=== PATIENT | female | born 1930 | race Caucasian/White ===

== ENCOUNTER 2016-10-18 18:44 | Inpatient (IN) | payer MEDICARE, OTHER ==
[~2016-10-18] VITALS: Ht 162.6 cm; Wt 72.6 kg
[2016-10-18] MEDS ORDERED: Pantoprazole Inj ONE (19:17)
[2016-10-18] MEDS ORDERED: Levophed 4mg/4mL Inj IV ONE (19:22)
[2016-10-18] MEDS ORDERED: Vancomycin 1.5gm/D5W 300ml 325 ML IVPB ONE (19:30)
[2016-10-18] MEDS ORDERED: Cefepime HCl 1 GM in NS 55 ML IV SCH (19:30)
[2016-10-18] MEDS ORDERED: Cefepime 1gm vial ONE (19:30)
[2016-10-18] MEDS ORDERED: metroNIDAZOLE 500mg 100 ML IV SCH (19:30)
[2016-10-18 19:34] LABS: BASOPHILS % (AUTO) 1.1 % (0.0-2.0); EOSINOPHILS % (AUTO) 0.3 % (0.0-3.0); LYMPHOCYTES % (AUTO) 46.9 % (20.0-45.0); MEAN CORPUSCULAR HEMOGLOBIN 26.2 PG (27.0-31.0); MEAN CORPUSCULAR HGB CONC 29.9 G/DL (32.0-36.0); MEAN CORPUSCULAR VOLUME 88 FL (80-99); MONOCYTES % (AUTO) 3.5 % (1.0-10.0); NEUTROPHILS % (AUTO) 48.3 % (45.0-75.0); PLATELET COUNT 291 K/UL (150-450); RED BLOOD COUNT 4.07 M/UL (4.20-5.40); RED CELL DISTRIBUTION WIDTH 15.3 % (11.6-14.8); WHITE BLOOD COUNT 9.6 K/UL (4.8-10.8)
[2016-10-18 19:45] LABS: TROPONIN I < 0.30 ng/mL (<=0.30)
[2016-10-18 19:46] LABS: PROTHROMBIN TIME 63.6 SEC (9.30-11.50)
[2016-10-18 19:49] LABS: ALANINE AMINOTRANSFERASE 222 U/L (3-33); ANION GAP 37 (5-15); ASPARTATE AMINO TRANSFERASE 248 U/L (5-40); CALCIUM 7.8 mg/dL (8.6-10.2); CARBON DIOXIDE 11 mEQ/L (20-30); CHLORIDE 95 mEQ/L (98-107); CREATININE 4.4 mg/dL (0.5-0.9); HEMOLYSIS 26; INR 5.9 (0.9-1.1); LIPASE 35 U/L (< 60); POTASSIUM 5.5 mEQ/L (3.4-4.9); SODIUM 143 mEQ/L (135-145); TOTAL PROTEIN 4.8 g/dL (6.6-8.7)
[2016-10-18 19:59] LABS: CKMB 5.7 ng/mL (< 3.8)
[2016-10-18 20:08] LABS: ABG BASE EXCESS -24.9; ABG PCO2 53.1 mmHg (35.0-45.0)
[2016-10-18 20:09] LABS: ABG ALLEN TEST POSITIVE
[2016-10-18] MEDS ORDERED: Sodium Bicarbonate 8.4% 50ml Carp IV ONE (20:15)
[2016-10-18] MEDS ORDERED: Pantoprazole Inj IVP ONE (21:00)
[2016-10-18] MEDS ORDERED: DOPamine 400mg/250ml 250 ML IV SCH ×2 (21:15→21:45)
[2016-10-18] MEDS ORDERED: Mylanta II UD 30ml ORAL PRN (21:15)
[2016-10-18] MEDS ORDERED: Nitroglycerin Subl 0.4mg tab (Bottle Of 25) SL PRN (21:15)
[2016-10-18] MEDS ORDERED: Miralax 17gm pkt ORAL PRN (21:15)
[2016-10-18] MEDS ORDERED: Phytonadione 10 MG in D5W 55 ML IVPB ONE ×4 (21:15)
[2016-10-18] MEDS ORDERED: Ketorolac 30mg Inj IV PRN (21:15)
[2016-10-18] MEDS ORDERED: Morphine Sulfate 2mg/ml Inj IVP PRN (21:15)
[2016-10-18] MEDS ORDERED: Phytonadione 10 mg/mL 1ml amp ONE (21:45)
[2016-10-18] MEDS ORDERED: D5NS 1,000 ML IV SCH (21:46)
[2016-10-18 22:05] VITALS: BP 145/82
--- NOTE | 2016-10-18 22:05 | Emergency Room Report ---
History of Present Illness General Chief Complaint: CPR Source: EMS Present Illness HPI Patient is a 86-year-old female who presented after cardiac arrest. Patient was noted to have vomited and had arrest during transport. Patient was brought in by EMS with CPR ongoing. Patient was noted to have a large amount of emesis with questionable blood. Patient was noted to have a prior history of coagulopathy secondary to Coumadin use. The patient prior history of DVT as well as atrial fibrillation is being anticoagulated. History is limited by patient's acuity. CPR was noted to be initiated as soon as the patient arrested.At the time of arrival patient was receiving oxygen via bag valve mask Allergies: Coded Allergies: No Known Allergies (Unverified , 10/18/16) Patient History Past Medical History: see triage record, old chart reviewed Now: No Reviewed Nursing Documentation: PMH: Agreed, PSxH: Agreed Nursing Documentation-PMH Past Medical History: No History, Except For Hx Hypertension: Yes History Of Psychiatric Problem: Yes - Depression Hx Cerebrovascular Accident: Yes Review of Systems All Other Systems: negative except mentioned in HPI Physical Exam Vital Signs Date Time Temp Pulse Resp B/P Pulse Ox O2 Delivery O2 Flow Rate FiO2 10/18/16 18:44 0 0 10/18/16 19:05 100 10/18/16 19:10 Mechanical Ventilator 10/18/16 20:30 52/43 General Appearance: severe distress, other - unresponsive apneic covered in emesis Eyes: bilateral eye other - nonreactive, 2mm ENT: other - large amount of oral vomitus, with some blood Respiratory: decreased breath sounds, rhonchi Cardiovascular #1: other - cpr Cardiovascular #2: 0 carotid (R) Musculoskeletal: other - no respons Neurologic: other - nonresponsive apneic Procedures Critical Care Time Critical Care Time Patient had a critical medical condition which untreated could potentially result in life or limb threatening injury. Total critical care time excluding procedures approximately 45 minutes. Medical Decision Making Diagnostic Impression: Primary Impression: Cardiac arrest Additional Impressions: Acute renal failure Acidosis Aspiration pneumonia Coagulopathy Hyperkalemia GI hemorrhage ER Course Patient presented for cardiac arrest. Differential diagnosis included was not limited to the arrhythmia, acidosis, cardiogenic shock, massive pulmonary embolism, massive myocardial infarction, aortic aneurysm, hemorrhagic shock, hypoxia. Because of complexity of patient's case laboratory testing and imaging studies were ordered. The patient was noted to have a witnessed arrest.The patient was noted to have a large amount of emesis which appear to have some blood. The patient's airway was suctioned CPR was initiated. The patient was given IV medications for blood pressure. The patient was intubated posterior laryngoscopy x1 with a MAC 3 blade. The patient was suctioned with large amount of emesis in endotracheal tube. The patient was given IV bicarbonate And several doses of epi as per code sheet. The patient was started on IV fluids and IV pressors after return spontaneous circulation. Patient was noted to have some spontaneous respirations initially after a return spontaneous circulation. She does not appear to be making any purposeful movements or opening her eyes spontaneously.The patient was given IV Protonix. She was type and cross for FFP. Patient was noted to be on maximum doses of Levophed with some improvement of her blood pressure. Patient subsequently started on dopamine for recurrent a hypotension.Dr. atkinson was contacted for critical care management. Dr. Favian Doty was contacted for inpatient management due to to the panel physician after discussion with the patient's primary care physician. Dr. Atif Allison was contacted for GI consult.After discussion the patient's daughter. Patient was made DO NOT RESUSCITATE. As she stated she wanted to continue resuscitative measures and reassess however she did not want the patient to have measures if her heart were to stop. Labs Test 10/18/16 19:00 10/18/16 19:21 White Blood Count 9.6 K/UL (4.8-10.8) Red Blood Count 4.07 M/UL (4.20-5.40) Hemoglobin 10.7 G/DL (12.0-16.0) Hematocrit 35.8 % (37.0-47.0) Mean Corpuscular Volume 88 FL (80-99) Mean Corpuscular Hemoglobin 26.2 PG (27.0-31.0) Mean Corpuscular Hemoglobin Concent 29.9 G/DL (32.0-36.0) Red Cell Distribution Width 15.3 % (11.6-14.8) Platelet Count 291 K/UL (150-450) Mean Platelet Volume 6.0 FL (6.5-10.1) Neutrophils (%) (Auto) 48.3 % (45.0-75.0) Lymphocytes (%) (Auto) 46.9 % (20.0-45.0) Monocytes (%) (Auto) 3.5 % (1.0-10.0) Eosinophils (%) (Auto) 0.3 % (0.0-3.0) Basophils (%) (Auto) 1.1 % (0.0-2.0) Prothrombin Time 63.6 SEC (9.30-11.50) Prothromb Time International Ratio 5.9 (0.9-1.1) Activated Partial Thromboplast Time 57 SEC (23-33) Sodium Level 143 mEQ/L (135-145) Potassium Level 5.5 mEQ/L (3.4-4.9) Chloride Level 95 mEQ/L (98-107) Carbon Dioxide Level 11 mEQ/L (20-30) Anion Gap 37 (5-15) Blood Urea Nitrogen 75 mg/dL (7-23) Creatinine 4.4 mg/dL (0.5-0.9) Estimat Glomerular Filtration Rate mL/min (>60) Glucose Level 242 mg/dL (74-106) Calcium Level 7.8 mg/dL (8.6-10.2) Total Bilirubin 0.4 mg/dL (0.0-1.2) Aspartate Amino Transf (AST/SGOT) 248 U/L (5-40) Alanine Aminotransferase (ALT/SGPT) 222 U/L (3-33) Alkaline Phosphatase 106 U/L (35-104) Total Creatine Kinase 130 U/L (26-140) Creatine Kinase MB 5.7 ng/mL (< 3.8) Creatine Kinase MB Relative Index 4.3 Troponin I < 0.30 ng/mL (<=0.30) Pro-B-Type Natriuretic Peptide 1375 pg/mL (0-450) Total Protein 4.8 g/dL (6.6-8.7) Albumin 2.5 g/dL (3.5-5.2) Globulin 2.3 g/dL Albumin/Globulin Ratio 1.0 (1.0-2.7) Lipase 35 U/L (< 60) Arterial Blood pH 6.829 (7.350-7.450) Arterial Blood Partial Pressure CO2 53.1 mmHg (35.0-45.0) Arterial Blood Partial Pressure O2 111.9 mmHg (75.0-100.0) Arterial Blood HCO3 8.6 mmol/L (22.0-26.0) Arterial Blood Oxygen Saturation 92.2 % (92.0-98.0) Arterial Blood Base Excess -24.9 Jose Test Positive EKG Diagnostic Results Rate: tachycardiac ST Segments: no acute changes Rhythm Strip Diag. Results Rhythm: no PVC's, no ectopy Chest X-Ray Diagnostic Results EP Interpretation: Yes Findings: no pneumothorax, other - adequated ETT, right lung infiltrate Number of Views: 1 Last Vital Signs Date Time Temp Pulse Resp B/P Pulse Ox O2 Delivery O2 Flow Rate FiO2 10/18/16 21:34 47/32 10/18/16 20:56 94 27 100 10/18/16 19:10 Mechanical Ventilator Status: unchanged Disposition: ADMITTED INPATIENT Condition: Critical Referrals: NON PHYSICIAN (PCP) Cm Peters Oct 18, 2016 22:05
[2016-10-18] MEDS ORDERED: SandoSTATIN 50mcg Inj IVP ONE (22:15)
[2016-10-18 22:45] VITALS: BP 145/82
[2016-10-18] MEDS ORDERED: Atropine Inj 1mg/10ml Syr ONE (23:58)
[2016-10-18] MEDS ORDERED: Sodium Bicarbonate 8.4% 50ml Carp ONE (23:58)
[2016-10-18] MEDS ORDERED: EPINEPHrine 1mg/10ml carp IV ONE ×2 (23:58)
--- NOTE | 2016-10-19 08:49 | Emergency Room Report ---
History of Present Illness General Chief Complaint: CPR Source: EMS Present Illness Allergies: Coded Allergies: No Known Allergies (Unverified , 10/18/16) Patient History Now: No Nursing Documentation-[facility] Past Medical History: No History, Except For Hx Hypertension: Yes History Of Psychiatric Problem: Yes - Depression Hx Cerebrovascular Accident: Yes Physical Exam Vital Signs Date Time Temp Pulse Resp B/P Pulse Ox O2 Delivery O2 Flow Rate FiO2 10/18/16 18:44 0 0 10/18/16 19:05 100 10/18/16 19:10 Mechanical Ventilator 10/18/16 20:30 52/43 10/18/16 22:05 96 Medical Decision Making Diagnostic Impression: Primary Impression: Cardiac arrest Additional Impressions: Acute renal failure Acidosis Coagulopathy GI hemorrhage Aspiration pneumonia Hyperkalemia ER Course I was called to evaluate patient for . Patient had been admitted to the hospital after recent cardiac arrest. Per my previous discussions with patient' s daughter, the patient was not to be resuscitated if her heart stopped. Patient was noted to have absent cardiac rhythm and absent pulse. Patient was noted to have no spontaneous respirations. Asystole was verified in two leads. Primary care physician to be notified by staff. Family was informed of the patients . Patient was pronounced at 11:15 PM. Status: worsened Disposition: Condition: Referrals: NON PHYSICIAN (PCP) Cm Peters Oct 19, 2016 08:49
--- NOTE | 2016-10-19 13:53 | Diagnostic Imaging Report ---
Indication: SOB Technique: One view of the chest Comparison: none Findings: There is an endotracheal tube in place, tip in good position approximately 2 cm above the nestor. The right jugular central venous catheter, tip in good position at the cavoatrial junction. There is fairly extensive interstitial and alveolar infiltrates versus edema throughout the right lung. Pleural spaces are clear. Left lung is largely clear. There is a paddle, probably a transcutaneous pacemaker, overlying the heart. There are surgical clips in the left axilla Impression: Satisfactory endotracheal intubation Satisfactory right jugular central venous catheter placement. No radiographically evident complication Extensive right lung interstitial and alveolar infiltrates versus edema Other findings as noted This agrees with the preliminary interpretation provided by the emergency room physician
--- NOTE | 2016-10-20 23:58 | Discharge Summary 2 SIG ---
DATE OF ADMISSION: 10/18/2016 DATE OF DISCHARGE: 10/18/2016 BRIEF SUMMARY: The patient is an unfortunate 86-year-old female, who was brought in to ED, status post cardiac arrest while en route to hospital per ambulance report. The patient had respiratory distress at nursing facility and vomited blood. On arrival to ED, CPR was ongoing and the patient was noted to have a large amount of emesis. She had a prior history of DVT as well as atrial fibrillation and has been on Coumadin. She immediately had oral intubation done and was started on intravenous bicarbonate and IV pressors. Laboratories showed elevated INR and was ordered fresh frozen plasma transfusion. Per discussion with the patient's daughter, the patient was made DNR, however, she wanted to continue resuscitative measures but does not want any life prolonging measures if her heart would stop. She was transferred to ICU and thereafter, was noted to have absent cardiac rhythm and absent pulse. There was no spontaneous respirations and was asystole on two leads. The patient . FINAL DIAGNOSES: 1. Status post cardiac arrest. 2. Aspiration pneumonia. 3. Hypovolemic shock. 4. Gastrointestinal bleed. 5. Hypercoagulable state. 6. Hyperkalemia. 7. Acute respiratory failure requiring oral intubation Jonathan Rodriguez M.D. I have been assigned to dictate discharge summary on this account and I was not involved in the patient's management. Erica Moon N.P. DR: VINCE JOB#: [id number] CC: CHELY
--- NOTE | 2016-10-23 08:38 | Cardiology Report ---
APPROVED REPORT EKG Measurement Heart [id number] Sinus tachycardia Rightward axis Low voltage QRS Possible Inferior infarct, age undetermined Abnormal ECG
== END 2016-10-18 23:59 | disposition expired | DRG 296 ==
LOC: EDBD 18:44 → EMR 19:01 → EDBEDREQ 19:26 → ICU 19:35 → EDBEDREQ 19:54
DX: I46.9 Cardiac arrest, cause unspecified (principal); J69.0 Pneumonitis due to inhalation of food and vomit; J96.00 Acute respiratory failure, unspecified whether with hypoxia or hypercapnia; R57.1 Hypovolemic shock; N17.9 Acute kidney failure, unspecified; K92.2 Gastrointestinal hemorrhage, unspecified; E87.2 Acidosis; E87.5 Hyperkalemia; I48.91 Unspecified atrial fibrillation; Z66 Do not resuscitate; Z86.718 Personal history of other venous thrombosis and embolism; R79.1 Abnormal coagulation profile; I10 Essential (primary) hypertension; Z86.73 Personal history of transient ischemic attack (TIA), and cerebral infarction without residual deficits
CPT/HCPCS: 31500; 36415; 36600; 71010; 80053; 82550; 82553; 82803; 83690; 83880; 84484; 85025; 85610; 85730; 86850; 86900; 86901; 86920; 87040; 93005; 94002; 94664; J0171